=== PATIENT | male | born 1985 | race Caucasian/White ===

== ENCOUNTER 2018-06-13 17:49 | Emergency (ER) | payer BC ==
[~2018-06-13] VITALS: Ht 188 cm; Wt 88.5 kg
[2018-06-13 18:00] VITALS: BP_SYST 159
[2018-06-13] MEDS ORDERED: AMOXICILLIN/CLAVULANATE POTASSIUM 875 MG TABLET PO ONE (18:45)
[2018-06-13] MEDS ORDERED: KETOROLAC TROMETHAMINE 60 MG/2 ML VIAL IM ONE (18:45)
[2018-06-13 19:16] VITALS: BP_SYST 142
== END 2018-06-13 19:12 | disposition home or self-care (01) ==
LOC: SED 17:49
DX: J01.90 Acute sinusitis, unspecified (principal); R03.0 Elevated blood-pressure reading, without diagnosis of hypertension; Z87.891 Personal history of nicotine dependence
CPT/HCPCS: 96372; 99283; J1885